=== PATIENT | male | born 1955 | race Caucasian/White ===

== ENCOUNTER → 2016-08-19 | Outpatient (CLI) | payer MEDICARE, OTHER ==
[~2016-08-19] MED LIST: ASPIR 8181 MG PO; FERROUS SULFAT324 MG PO; FISH OIL OMEGA1 EACH PO; IMDUR ER TAB 3030 MG PO; LABETALOL HCL300 MG PO; LEVOTHYROXINE25 MCG PO; LIPITOR TAB 1010 MG PO; LISINOPRIL20 MG PO; MELOXICAM15 MG PO; METFORMIN HCL500 MG PO; NASALIDE INH SO25 ML; OCUVITE SOFTGE1 EACH PO; PRILOSEC OTC20 MG PO
== END ==
LOC: KOH-I 14:34
DX: M54.5 Low back pain (principal); M25.562 Pain in left knee; M51.36 Other intervertebral disc degeneration, lumbar region
CPT/HCPCS: 72110; 73502

== ENCOUNTER → 2021-06-05 | Outpatient (CLI) | payer MEDICARE, OTHER ==
[~2021-06-05] MED LIST changes: +CVS FISH OIL 11 EACH PO; +FISH OIL 1,0001 EACH PO; +LOMOTIL 2.5-0.1 EACH PO; +MEN'S ONE DAIL1 EACH PO; +VITAMIN D350000 UNIT PO; +ZESTRIL/PRINIVI10 MG PO; +ZOFRAN ODT 4 MG4 MG SL
== END ==
LOC: HEART 5 05-15 14:30
DX: R00.2 Palpitations (principal)